=== PATIENT | male | born 1990 | race Caucasian/White ===

== ENCOUNTER 2023-12-06 01:20 | Emergency (ER) | payer SELFPAY ==
[~2023-12-06] VITALS: Ht 182.9 cm; Wt 99.8 kg
[2023-12-06 01:27] VITALS: BP 116/75; PULSE 107; RESP 18; TEMP 98; O2SAT 98
--- NOTE | 2023-12-06 01:33 | NUR ---
ambulated to bed 7 w/ gf
[2023-12-06 02:11] VITALS: BP 116/75; PULSE 107; RESP 18; TEMP 98; O2SAT 98
--- NOTE | 2023-12-06 02:11 | NUR ---
33YR OLD MALE AOX4 BIB SELF C/O PENILE PAIN 10/10 THAT STARTED X30MIN PRIOR TO ARRIVAL. PT ENDORSED HE WAS HAVING INTERCOURSE WHEN HE FELT PAIN AND SWELLING AT THE TIP OF HIS FORESKIN. PT DENIES ANY TRAUMA OR TESTICUALR PAIN. NO PENILE DISCHARGE. NKDA DENIES MED HX
[2023-12-06] MEDS ORDERED: TRANEXAMIC ACID 1,000 MG/10 ML VIAL ONE (02:59)
[2023-12-06] MEDS: methylPREDNISolone SS 125 MG/2 ML VIAL IVP ONE (03:03)
[2023-12-06] MEDS: TRANEXAMIC ACID 1,000 MG in NACL 0.9% 50 ML IV STA (03:04)
[2023-12-06] MEDS: FAMOTIDINE 20 MG/2 ML VIAL IVP ONE (03:04)
--- NOTE | 2023-12-06 04:36 | NUR ---
Patient discharged with v/s stable. Written and verbal after care instructions given and explained. Patient verbalized understanding. Ambulatory with steady gait. All questions addressed prior to discharge. Advised to follow up with PMD.
== END 2023-12-06 04:36 | disposition home or self-care (01) ==
LOC: MED 01:20
DX: N48.89 Other specified disorders of penis (principal)
CPT/HCPCS: 96365; 96375; 99284; J2919; J3490; Q0163